=== PATIENT | female | born 1955 | race Caucasian/White ===

== ENCOUNTER 2019-07-07 04:51 | Inpatient (IN) | payer OTHER, MEDICARE ==
[2019-06-23 14:50] VITALS: BMI 20.9
[2019-07-07] MEDS ORDERED: methylPREDNISolone ACET (DEPO) 40 MG/1 ML VIAL ONE (07:23)
[2019-07-07] MEDS ORDERED: BUPIVACAINE HCL/PF 0.5% (5 MG/ML) 30 ML VIAL IJ ONE ×2 (07:24→09:14)
[2019-07-07] MEDS ORDERED: BACITRACIN 15 GM TUBE TOPICAL OINTMENT ONE (07:24)
[2019-07-07] MEDS ORDERED: THROMBIN (BOVINE) 5,000 UNIT VIAL TP ONE ×2 (07:24→09:22)
[2019-07-07] MEDS ORDERED: MIDAZOLAM HCL 2 MG/2 ML SINGLE DOSE VIAL ONE (07:56)
[2019-07-07] MEDS ORDERED: ROCURONIUM BROMIDE 50 MG/5 ML SYRINGE ONE (07:58)
[2019-07-07] MEDS ORDERED: PROPOFOL 20 ML ONE (07:58)
[2019-07-07] MEDS ORDERED: fentaNYL CITRATE 250 MCG/5 ML VIAL ONE (07:59)
[2019-07-07] MEDS ORDERED: ceFAZolin SODIUM 1 GM VIAL IVPB ONE (08:20)
[2019-07-07] MEDS ORDERED: ceFAZolin SODIUM 1 GM VIAL ONE ×2 (09:18→18:27)
[2019-07-07] MEDS ORDERED: ONDANSETRON 4 MG/2 ML VIAL ONE (09:18)
[2019-07-07] MEDS ORDERED: GLYCOPYRROLATE 0.2 MG/1 ML VIAL ONE (09:18)
[2019-07-07] MEDS ORDERED: LIDOCAINE HCL/PF 2% SDV 5ML VIAL ONE (09:18)
[2019-07-07] MEDS ORDERED: methylPREDNISolone NA SUCC 125 MG/2 ML VIAL ONE (09:19)
[2019-07-07] MEDS ORDERED: VASOPRESSIN 20 UNITS/ML VIAL IV ONE (09:19)
--- NOTE | 2019-07-07 09:56 | OP ---
Operative Note - Note: Operative Date: 07/07/19 Pre-Operative Diagnosis: L L5-S1 extruded disc with stenosis and lumbar radiculopathy Operation: Re-exploration of prior incision and partial L L5 and S1 laminectomies, medial facetectomy for microdiscectomy; harvest of autologous bone graft and postero-lateral L L5-S1 graft placement; microdissection Findings: Extruded HNP L L5-S1 with thecal sac and L S1 root compression; paraspinal fibrosis Post-Operative Diagnosis: Same as Pre-op Surgeon: Sridhar Gayle Sharepoint Analyst: Natasha Vail Anesthesiologist/CORPORATE LAW ASSISTANT: Lindsay Barry MD Anesthesia: General Estimated Blood Loss (mls): 10 Operative Report Dictated: Yes
[2019-07-07] MEDS ORDERED: ONDANSETRON 4 MG/2 ML VIAL IVPUSH PRN ×3 (09:59→11:14)
[2019-07-07] MEDS ORDERED: PNEUMOC 13-VAL CONJ-DIP CRM/PF 0.5 ML DISP.SYRIN IM ONE (10:00)
[2019-07-07] MEDS ORDERED: BACITRACIN 50,000 UNITS VIAL NR ONE (10:00)
[2019-07-07] MEDS ORDERED: BACITRACIN 15 GM TUBE TOPICAL OINTMENT TP ONE (10:06)
[2019-07-07] MEDS ORDERED: NEOSTIGMINE METHYLSULFATE 0.5 MG/1 ML - 10 ML MDV ONE ×2 (10:07)
--- NOTE | 2019-07-07 10:24 | PN ---
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
[2019-07-07] MEDS ORDERED: HYDROmorphone *PCA* 10MG/50ML DISP.SYRIN ONE (10:32)
[2019-07-07] MEDS: D5-1/2NS+20 MEQ KCL - 20 MEQ/1,000 ML INFUS.BAG IV SCH ×2 (10:40→22:56)
--- NOTE | 2019-07-07 11:04 | SURG ---
Surgery Vending Mechanic Note Vending Mechanic: Natasha Vali PA-C Date of Service: 07/07/19 Diagnosis: L L5-S1 extruded disc with stenosis and lumbar radiculopathy Procedure: Re-exploration of prior incision and partial L L5 and S1 laminectomies, medial facetectomy for microdiscectomy; harvest of autologous bone graft and postero- lateral L L5-S1 graft placement; microdissection I was present for the entirety of the operative procedure. For further detail, please refer to operative report. Visit type - Case Type Case Type: Scheduled - Emergency Emergency Visit: No - New patient This patient is new to me today: Yes Date on this admission: 07/07/19
[2019-07-07] MEDS ORDERED: DEXAMETHASONE SOD PHOSPHATE 4 MG/1 ML VIAL IVPUSH PRN (11:14)
[2019-07-07] MEDS ORDERED: morphine SULFATE/PF 30 MG/30 ML *PCA* DISP.SYRIN PCA SCH (11:15)
--- NOTE | 2019-07-07 11:32 | PN ---
Progress Note (short form) - Note Progress Note: Anesthesia note 64 y/o F s/p GA for laminectomy today. Asked by the surgeon to start uniform force captain. Patient in pacu, immediately postop, dilaudid uniform force captain started by the nurse and loading dose given without any allergic reaction. D/w the patient who has reported dilaudid as a medication she's allergic to. Her reaction to dilaudid is pruritus. Explained to the patient that pruritus is a side effect of dilaudid. We will discontinue the dilaudid uniform force captain and order morphine uniform force captain for the patient.
[2019-07-07] MEDS ORDERED: HYDROmorphone *PCA* 10MG/50ML DISP.SYRIN PCA SCH (11:45)
[2019-07-07] MEDS: CEFAZOLIN 1 GM in DEXTROSE 5%-WATER - 50 ML IVPB SCH ×2 (14:17→18:50)
[2019-07-07] MEDS: LACTATED RINGERS SOLUTION 1,000 ML IV SCH (14:18)
[2019-07-07] MEDS: GABAPENTIN 300 MG CAPSULE (FP) PO SCH ×2 (14:31→22:57)
[2019-07-07] MEDS: DOCUSATE SODIUM 100 MG CAPSULE (FP) PO SCH ×2 (14:31→22:57)
[2019-07-07] MEDS: diazePAM 5 MG TABLET PO SCH ×2 (14:31→22:56)
[2019-07-07] MEDS ORDERED: DEXTROSE 5%-WATER - 50 ML IVPB ONE (18:28)
--- NOTE | 2019-07-07 21:01 | OP ---
DATE OF OPERATION: 07/07/2019 PREOPERATIVE DIAGNOSIS: 1. Left L5-S1 extruded disk herniation. 2. History of extensive lumbar surgery including multilevel fusion. 3. Atrial fibrillation. 4. Rheumatoid arthritis. POSTOPERATIVE DIAGNOSIS: 1. Left L5-S1 extruded disk herniation. 2. History of extensive lumbar surgery including multilevel fusion. 3. Atrial fibrillation. 4. Rheumatoid arthritis. ATTENDING SURGEON: Sridhar Jauregui M.D. DIGITAL ADVISOR: YIN Nunes ANESTHESIA: General endotracheal. ANESTHESIOLOGIST: Lindsay Barry MD ESTIMATED BLOOD LOSS: 10 mL. WOUND CLASSIFICATION: Clean. PROCEDURE: 1. Partial left L5-S1 laminectomies including medial facetectomy and foraminotomy and microdiskectomy for decompression of left-sided thecal sac at L5-S1 as well as left S1 and L5 nerve root (33068, 24768). 2. [place] of autologous mid-laminar and spinous laminar bone and bone dust ( [id number]). 3. Posterior lumbar bone graft placement for posterolateral fusion L5-S1 (95564 ). 4. Microsurgical dissection with operative microscope and microsurgical techniques (18224). FINDINGS: 1. Left L5-S1 extruded disk herniation with impingement of the left S1 nerve root as well as the thecal sac. 2. Paraspinal fibrosis from prior procedures. INDICATION: The patient is a 64-year-old female with intractable lower back pain and left lower extremity radiculopathy. Because of intractable symptoms and neurologic deficits to her extremities, she is here for lumbar decompression. She also has prior fusion from L1 to L3 as well as prior laminectomies in the mid and lower lumbar spine. She is now consented for lumbar decompression and possible bone graft placement. Risks of the procedure include but are not limited to bleeding, infection, dural tear with CSF leak, neurologic injury. Because of prior surgeries and her chronic steroid use, her risks are somewhat higher. No guarantees of a favorable outcome. She has stopped her Eliquis several days prior to surgery per the instructions of her medical corps officer. She does not have any cardiac symptoms presently. PROCEDURE IN DETAIL: The patient was taken to the operating room. She was placed in supine position. After general anesthesia was induced and appropriate lines were placed, she was turned over in prone position on a Tony frame. All pressure points were checked and padded. Her right shoulder appears to be somewhat hypermobile , and special care was taken to not over exert the right shoulder, or over abduct the right shoulder in her prone position. The lumbar region was cleaned with alcohol and prepped with Betadine. The prior incision was used, even though it was slightly towards the left side instead of at the midline. Approximately a 1-3/4 inch incision was used, incorporating her prior incision predominantly. Subperiosteal dissection was carried out at the periosteal area by monopolar electrocautery. Perispinal fibrosis noted. Two self-retaining retractors were inserted, and local anesthesia was obtained. Partial laminectomy on the left side L5 and S1 was carried out with high-speed pneumatic drill, angled curet and Kerrison rongeur, and the bone graft and bone vessel were saved to be used later on. This was because the patient had slight retrolisthesis at L5-S1 with degenerative disk space narrowing. Medial facetectomy was also carried out with angled curet and a Kerrison rongeur, also with high- speed pneumatic drill. Microscope was used for this portion of procedure for both illumination and magnification. Microsurgical techniques were utilized. The underlying ligamentum flavum was reduced first before they were resected with a Kerrison rongeur. The dura was thin appearing as it was under chronic pressure and possibly from her chronic steroid use. The foraminotomy was carried out on the left side at L5-S1 to decompress the left L5 nerve root. The fragmented disk material was mobilized with a spinal nerve hook as well as dental tool, and several disk fragments were removed with a pituitary rongeur. The anterior surface of the left S1 nerve root was freed, was palpated, and then explored with a dental tool and a blunt neural hook, and any palpable free fragments were removed. At this angle, it was felt to be firm, and it was not incised further. The wound was irrigated intermittently with antibiotic irrigation. After decompression was complete, the Valsalva maneuver was performed, and there was no CSF drainage. The posterolateral structures of the spine included proximal transverse process was decorticated with high-speed pneumatic drill on the left side. It was then packed with autologous morselized bone graft and bone dust. Then 10 mL of 0.5% Marcaine was injected in the paraspinal muscle on the left side only. The wound was irrigated, and hemostasis was obtained with bipolar electrocautery. Dorsal lumbar fascia was closed with 0 Vicryl sutures. Superficial fascia was closed with 3-0 Vicryl suture, skin was closed with 4-0 Vicryl in running subcuticular suture. The patient tolerated the procedure well, was turned back and sterile occlusive dressing was applied. The patient tolerated the procedure well, was returned to supine position, extubated. Her neurological examination was intact in the recovery period. All needle and lap counts were correct. The OR timeout procedure was followed. One dose of 2 g Ancef was given prior to incision. She was also given stress dose of steroid by the anesthesiologist. SRIDHAR JAUREGUI M.D. [id number] MTDD
[2019-07-07] MEDS ORDERED: PT OWN MED DRAWER 7, Y5N ONE (21:11)
[2019-07-07] MEDS: ROSUVASTATIN CA 20 MG TABLET (FP) PO SCH (22:56)
[2019-07-08] MEDS: oxyCODONE HCL 5 MG TABLET PO PRN ×3 (04:51→22:10)
[2019-07-08] MEDS: GABAPENTIN 300 MG CAPSULE (FP) PO SCH ×3 (05:11→21:19)
[2019-07-08] MEDS: DOCUSATE SODIUM 100 MG CAPSULE (FP) PO SCH ×3 (05:11→21:19)
[2019-07-08] MEDS: diazePAM 5 MG TABLET PO SCH ×4 (05:11→21:19)
--- NOTE | 2019-07-08 07:26 | PN ---
Progress Note (short form) - Note Progress Note: Anesthesia Post Op Note Pt seen s/p GA for lumbar lami -- on SALES SUPPORT REPRESENTATIVE Pt reports significant nausea one episode of vomiting associated with SALES SUPPORT REPRESENTATIVE use Pain control with po oxycodone better tolerate -- will d/c SALES SUPPORT REPRESENTATIVE otherwise pt is well ambulating no urinary retention VSS no apparent anesthesia complications Jordon Archibald.
--- NOTE | 2019-07-08 08:02 | PN ---
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
[2019-07-08] MEDS ORDERED: PT OWN MED DRAWER 7, Y5N ONE ×3 (09:13→20:59)
[2019-07-08] MEDS: FUROSEMIDE 20 MG TABLET (FP) PO SCH (09:20)
[2019-07-08] MEDS: metoPROLOL SUCCINATE 25 MG TAB.SR.24H (FP) PO SCH (09:20)
[2019-07-08] MEDS: PANTOPRAZOLE 40 MG TABLET (FP) PO SCH (09:20)
[2019-07-08] MEDS: FAMOTIDINE 20 MG TABLET PO SCH (09:20)
[2019-07-08] MEDS: methylPREDNISolone 4 MG TABLET PO SCH (09:21)
[2019-07-08] MEDS: LEFLUNOMIDE 10 MG TABLET PO SCH (10:10)
[2019-07-08] MEDS: LACTATED RINGERS SOLUTION 1,000 ML IV SCH (13:52)
--- NOTE | 2019-07-08 16:37 | PATH ---
Surgical Pathology Report Patient Name: GIOVANNA LORA Med. Rec. #: [id number] /Age/Gender: 1955 (Age: 64) / F Account: [id number] Location: [facility] MED/SURG Taken: 07/07/2019 Received: 07/07/2019 Reported: 07/08/2019 Physicians: Sridhar Gayle M.D. Specimen(s) Received LEFT L5-S1 Clinical History Left L5-S1 herniated discs Final Diagnosis DISCS, L5-S1, LEFT, LUMBAR LAMINECTOMY AND DISCECTOMY: BENIGN INTERVERTEBRAL DISC TISSUE AND BONE. Electronically Signed Cayla Castro M.D. Gross Description Received in formalin labeled "left L5-S1 discs," is a 1.1 x 1.0 x 0.3 cm aggregate of kline fragments of fibrocartilaginous tissue. The specimen is entirely submitted in one cassette. /07/07/2019 saudi07/07/2019
[2019-07-08] MEDS: ROSUVASTATIN CA 20 MG TABLET (FP) PO SCH (21:19)
[2019-07-08] MEDS ORDERED: LATANOPROST 0.005% OPHTH SOLN 2.5ML BOTTLE OU SCH (22:00)
[2019-07-09] MEDS: oxyCODONE HCL 5 MG TABLET PO PRN (05:50)
[2019-07-09] MEDS: DOCUSATE SODIUM 100 MG CAPSULE (FP) PO SCH (05:50)
[2019-07-09] MEDS: GABAPENTIN 300 MG CAPSULE (FP) PO SCH (05:50)
[2019-07-09] MEDS: diazePAM 5 MG TABLET PO SCH (06:28)
--- NOTE | 2019-07-09 08:17 | PN ---
Progress Note (short form) - Note Progress Note: NEUROSURGERY POD #2 S/p L L5-S1 decompression and bone graft "sore" over thigh Some thigh pain on L Urinating well T 98.8; AF, VSS PE: RRR; Lungs- CTA B; Abd- benign; Ext- no sign of DVT; iv infiltrated site much improved CN- non-focal; Motor- at least 4/5 B UE/LE; Sensation- grossly intact LT Dressing C/D/I- changed Complete course of po abx given chronic steroid use Restart Eliquis Adv diet PT Findings d/w pt
[2019-07-09] MEDS ORDERED: PT OWN MED DRAWER 7, Y5N ONE (09:32)
[2019-07-09] MEDS: FUROSEMIDE 20 MG TABLET (FP) PO SCH (09:40)
[2019-07-09] MEDS: metoPROLOL SUCCINATE 25 MG TAB.SR.24H (FP) PO SCH (09:40)
[2019-07-09] MEDS: PANTOPRAZOLE 40 MG TABLET (FP) PO SCH (09:40)
[2019-07-09] MEDS: methylPREDNISolone 4 MG TABLET PO SCH (09:40)
[2019-07-09] MEDS: FAMOTIDINE 20 MG TABLET PO SCH (09:40)
[2019-07-09] MEDS: LEFLUNOMIDE 10 MG TABLET PO SCH (09:41)
[2019-07-09 12:00] VITALS: BP 98/56; PULSE 78; TEMP 99
== END 2019-07-09 13:10 | disposition home or self-care (01) | DRG 460 ==
LOC: JSAMEDAYSX 04:51 → J8W 12:26
PROVIDERS: ADMIT Neurological Surgery; ATTEND Neurological Surgery
PROC: 0ST40ZZ Resection of Lumbosacral Disc, Open Approach (ICD-10-PCS; 2019-07-07)
PROC: 01NB0ZZ Release Lumbar Nerve, Open Approach (ICD-10-PCS; 2019-07-07)
PROC: 01NR0ZZ Release Sacral Nerve, Open Approach (ICD-10-PCS; 2019-07-07)
PROC: 0SG3071 Fusion of Lumbosacral Joint with Autologous Tissue Substitute, Posterior Approach, Posterior Column, Open Approach (ICD-10-PCS; principal; 2019-07-07 08:47)
DX: M51.27 Other intervertebral disc displacement, lumbosacral region (principal); M48.061 Spinal stenosis, lumbar region without neurogenic claudication; M54.17 Radiculopathy, lumbosacral region; M48.07 Spinal stenosis, lumbosacral region; I48.91 Unspecified atrial fibrillation; M06.9 Rheumatoid arthritis, unspecified
CPT/HCPCS: 72100-TC-FY; 90670; 94760; 97116-GP; 97162-GP

== ENCOUNTER 2020-02-09 05:15 | Day surgery (SDC) | payer OTHER, MEDICARE ==
[2020-02-06 12:01] LABS: BASO % 0.7 % (0-2.0); EOS % 0.5 % (0-4.5); HEMATOCRIT 38.8 % (32.4-45.2); HEMOGLOBIN 12.2 GM/dL (10.7-15.3); LYMPH % 23.2 % (8-40); MCH 29.4 pg (25.7-33.7); MCHC 31.5 g/dl (32.0-36.0); MEAN CELL VOLUME 93.3 fl (80-96); MEAN PLT VOLUME 9.5 fl (7.5-11.1); MONO % 8.6 % (3.8-10.2); PLATELET COUNT 208 K/MM3 (134-434); RBC 4.16 M/mm3 (3.60-5.2); RDW 18.2 % (11.6-15.6)
[2020-02-06 12:16] LABS: INR 1.08 (0.83-1.09); PROTHROMBIN TIME (PATIENT) 12.7 SEC (9.7-13.0)
[2020-02-08 13:26] VITALS: BMI 21.6
[2020-02-09] MEDS ORDERED: LIDOCAINE HCL/PF 2% SDV 5ML VIAL ONE (07:05)
[2020-02-09] MEDS ORDERED: EPHEDRINE SULFATE/0.9% NACL/PF 50 MG/10 ML SYRINGE NR ONE (07:06)
[2020-02-09] MEDS ORDERED: PROPOFOL 20 ML ONE (07:06)
[2020-02-09] MEDS ORDERED: MIDAZOLAM HCL 2 MG/2 ML SINGLE DOSE VIAL ONE (07:07)
[2020-02-09] MEDS ORDERED: BUPIVACAINE HCL/PF 0.25% (2.5MG/ML) 10 ML VIAL ONE (07:21)
[2020-02-09] MEDS ORDERED: methylPREDNISolone ACET (DEPO) 80 MG/1 ML VIAL ONE (07:21)
[2020-02-09] MEDS ORDERED: methylPREDNISolone ACET (DEPO) 80 MG/1 ML VIAL IM ONE ×2 (07:26→07:40)
[2020-02-09] MEDS ORDERED: LIDOCAINE HCL 1%, 10 MG/ML (20ML VIAL) NR ONE ×2 (07:26)
[2020-02-09] MEDS ORDERED: BUPIVACAINE HCL 0.25% 125 MG/50 ML VIAL NR ONE ×2 (07:27→07:40)
[2020-02-09 08:10] VITALS: TEMP 97.9
[2020-02-09 09:41] VITALS: BP 126/73; PULSE 61
== END 2020-02-09 09:43 | disposition home or self-care (01) ==
LOC: JASU-SURG 05:15
PROVIDERS: ATTEND Neurological Surgery
PROC: 3E0R33Z Introduction of Anti-inflammatory into Spinal Canal, Percutaneous Approach (ICD-10-PCS; 2020-02-09)
PROC: B01BZZZ Fluoroscopy of Spinal Cord (ICD-10-PCS; 2020-02-09)
PROC: 3E0R3BZ Introduction of Anesthetic Agent into Spinal Canal, Percutaneous Approach (ICD-10-PCS; principal; 2020-02-09 07:30)
DX: M96.1 Postlaminectomy syndrome, not elsewhere classified (principal); M54.17 Radiculopathy, lumbosacral region
CPT/HCPCS: 36415; 76000-TC-FY; 85025; 85610; 85730

== ENCOUNTER 2020-11-14 12:36 | Emergency (ER) | payer OTHER, MEDICARE | END 2020-11-14 13:26 | disposition home or self-care (01) | LOC: JVIRT 12:36 | DX: R50.9 Fever, unspecified (principal); Z11.52 Encounter for screening for COVID-19 | CPT/HCPCS: C9803; G2251-GT; U0003 ==

== ENCOUNTER 2021-01-21 11:02 | Emergency (ER) | payer OTHER, MEDICARE ==
[2021-01-22 10:07] LABS: SARS-CoV-2 NAA Not Detected (Not Detected)
== END 2021-01-21 11:40 | disposition home or self-care (01) ==
LOC: JVIRT 11:02
DX: Z11.52 Encounter for screening for COVID-19 (principal)
CPT/HCPCS: C9803; G2251-GT; U0003; U0005